=== PATIENT | female | born 1990 | race Caucasian/White ===

== ENCOUNTER 2016-07-10 04:59 | Inpatient (IN) | payer OTHER ==
[~2016-07-10] VITALS: Ht 162.6 cm; Wt 98.2 kg
[2016-07-10] VITALS (38 sets, daily range): BP systolic 123–214; BP diastolic 72–104
[~2016-07-10 04:59] MED LIST: EXPECTA PRENAT1 EACH PO; MACROBID100 MG PO
[2016-07-10 07:19] LABS: HEMATOCRIT 36.9 % (36.0-46.0); MCH 31.5 PG (29.0-34.0); MCHC 34.4 G/DL (30.0-36.0); MCV 91.6 FL (83-99); MEAN PLAT.VOLUME 10.2 uM^3 (9.5-12.4); PLATELET COUNT 282 K/uL (156-360); RBC DIS.WIDTH-CV 13.3 % (11.8-14.6); RBC DIS.WIDTH-SD 44.1 % (39-53); RED BLOOD COUNT 4.03 M/uL (3.80-5.20); WHITE BLOOD COUNT 13.4 K/uL (4.1-10.2)
[2016-07-10 07:43] LABS: ALKALINE PHOSPHATASE 83 IU/L (3-129); ANION GAP 12 MEQ/L (2-14); CHLORIDE 108 MEQ/L (99-109); GFR ESTIMATE (CALCULATED) > 59 mL/min/; GLUCOSE 75 mg/dL (70-99); POTASSIUM 3.9 MEQ/L (3.7-5.4); SAMPLE HEMOLYSIS CHECK 0; SAMPLE ICTERIC CHECK 0; SAMPLE LIPEMIA CHECK 0; SODIUM 139 MEQ/L (136-147); TOTAL BILIRUBIN 0.4 MG/DL (0.0-1.0); UREA NITROGEN (BUN) 18 mg/dL (9-23)
[2016-07-11] VITALS (13 sets, daily range): BP systolic 139–178; BP diastolic 78–110
[2016-07-11 07:03] LABS: HEMATOCRIT 36.1 % (36.0-46.0); MCH 31.1 PG (29.0-34.0); MCHC 34.1 G/DL (30.0-36.0); MCV 91.4 FL (83-99); MEAN PLAT.VOLUME 10.1 uM^3 (9.5-12.4); PLATELET COUNT 253 K/uL (156-360); RBC DIS.WIDTH-CV 13.5 % (11.8-14.6); RBC DIS.WIDTH-SD 44.8 % (39-53); RED BLOOD COUNT 3.95 M/uL (3.80-5.20); WHITE BLOOD COUNT 14.2 K/uL (4.1-10.2)
[2016-07-11 07:28] LABS: ALKALINE PHOSPHATASE 77 IU/L (3-129); ANION GAP 9 MEQ/L (2-14); CHLORIDE 108 MEQ/L (99-109); GFR ESTIMATE (CALCULATED) > 59 mL/min/; GLUCOSE 73 mg/dL (70-99); POTASSIUM 4.1 MEQ/L (3.7-5.4); SAMPLE HEMOLYSIS CHECK 0; SAMPLE ICTERIC CHECK 0; SAMPLE LIPEMIA CHECK 0; SODIUM 136 MEQ/L (136-147); TOTAL BILIRUBIN 0.4 MG/DL (0.0-1.0); UREA NITROGEN (BUN) 16 mg/dL (9-23)
[2016-07-12 03:10] VITALS: BP 153/91
[2016-07-12 07:18] VITALS: BP 152/100
[2016-07-12 11:00] VITALS: BP 165/94
[2016-07-12 15:28] VITALS: BP 148/86
[2016-07-12] MEDS ORDERED: VENTOLIN HFA18 GM IH ×2 (17:49→17:50)
[2016-07-12] MEDS ORDERED: PROVENTIL,2.5 MG/0.5 IH (17:51)
[2016-07-12 19:14] VITALS: BP 143/93
[2016-07-12 22:29] VITALS: BP 144/93
[2016-07-13] VITALS (14 sets, daily range): BP systolic 138–169; BP diastolic 86–105
[2016-07-13 09:19] LABS: HEMATOCRIT 38.8 % (36.0-46.0); MCH 30.4 PG (29.0-34.0); MCHC 33.5 G/DL (30.0-36.0); MCV 90.9 FL (83-99); RBC DIS.WIDTH-CV 13.5 % (11.8-14.6); RBC DIS.WIDTH-SD 44.5 % (39-53); RED BLOOD COUNT 4.27 M/uL (3.80-5.20); WHITE BLOOD COUNT 14.6 K/uL (4.1-10.2)
[2016-07-13 09:50] LABS: ALKALINE PHOSPHATASE 89 IU/L (3-129); ANION GAP 8 MEQ/L (2-14); CHLORIDE 108 MEQ/L (99-109); GFR ESTIMATE (CALCULATED) > 59 mL/min/; GLUCOSE 88 mg/dL (70-99); SAMPLE HEMOLYSIS CHECK 0; SAMPLE ICTERIC CHECK 0; SAMPLE LIPEMIA CHECK 0; SODIUM 136 MEQ/L (136-147); UREA NITROGEN (BUN) 24 mg/dL (9-23)
[2016-07-13 09:51] LABS: TOTAL BILIRUBIN 0.8 MG/DL (0.0-1.0)
[2016-07-13 10:48] LABS: MEAN PLAT.VOLUME 9.8 uM^3 (9.5-12.4)
[2016-07-13 11:00] LABS: PLATELET COUNT 167 K/uL (156-360)
[2016-07-13 12:24] LABS: DRSB INTERNAL CONTROL PASS; PROBE CHECK PASS
[2016-07-13 18:17] LABS: ALKALINE PHOSPHATASE 104 IU/L (3-129); ANION GAP 8 MEQ/L (2-14); CHLORIDE 107 MEQ/L (99-109); GFR ESTIMATE (CALCULATED) > 59 mL/min/; GLUCOSE 88 mg/dL (70-99); POTASSIUM 4.7 MEQ/L (3.7-5.4); SAMPLE HEMOLYSIS CHECK 0; SAMPLE ICTERIC CHECK 0; SAMPLE LIPEMIA CHECK 0; SODIUM 134 MEQ/L (136-147); TOTAL BILIRUBIN 0.7 MG/DL (0.0-1.0); UREA NITROGEN (BUN) 25 mg/dL (9-23)
[2016-07-13 18:22] LABS: HEMATOCRIT 41.1 % (36.0-46.0); MCH 31.3 PG (29.0-34.0); MCHC 34.3 G/DL (30.0-36.0); MCV 91.3 FL (83-99); MEAN PLAT.VOLUME 9.8 uM^3 (9.5-12.4); PLATELET COUNT 163 K/uL (156-360); RBC DIS.WIDTH-CV 13.6 % (11.8-14.6); RBC DIS.WIDTH-SD 44.5 % (39-53)
[2016-07-13] MEDS ORDERED: PERCOCET 5/31 TABLET PO (23:45)
[2016-07-13] MEDS ORDERED: MOTRIN800 MG PO (23:45)
[2016-07-14] VITALS (16 sets, daily range): BP systolic 127–196; BP diastolic 77–110
[2016-07-14 00:44] LABS: BASE EXCESS -3.5 mEq/L (-3 to +3); BICARBONATE 23.6 mEq/L (22-26); CARBOXY HGB 0.4 % (0-5); COMMENTS - BLOOD GASES C+; PCO2 49 mm Hg (35-45); PO2 < 28 mm Hg (80-100); SITE CORD VENOUS; pH 7.29 (7.35-7.45)
[2016-07-14 00:46] LABS: BICARBONATE 24.8 mEq/L (22-26); CARBOXY HGB 0.3 % (0-5); PCO2 54 mm Hg (35-45); PO2 < 28 mm Hg (80-100); pH 7.27 (7.35-7.45)
[2016-07-14 00:47] LABS: COMMENTS - BLOOD GASES C+; SITE CORD BLOOD
[2016-07-14 06:44] LABS: EOSINOPHIL (%) 0.9 % (0-5); EOSINOPHIL COUNT 0.2 K/uL (0-0.3); IMMATURE GRANULOCYTE (%) 0.4 % (0.0-0.7); IMMATURE GRANULOCYTE COUNT 0.1 K/uL; LYMPHOCYTE COUNT 3.2 K/uL (1.0-2.8); MCHC 33.9 G/DL (30.0-36.0); MCV 91.4 FL (83-99); MEAN PLAT.VOLUME 10.1 uM^3 (9.5-12.4); MONOCYTE (%) 8.9 % (3-12); MONOCYTE COUNT 1.6 K/uL (0-0.8); NEUTROPHIL COUNT 13.1 K/uL (1.8-6.4); PLATELET COUNT 143 K/uL (156-360); RBC DIS.WIDTH-CV 13.6 % (11.8-14.6); RBC DIS.WIDTH-SD 44.9 % (39-53); RED BLOOD COUNT 3.61 M/uL (3.80-5.20); WHITE BLOOD COUNT 18.2 K/uL (4.1-10.2)
[2016-07-15] VITALS (8 sets, daily range): BP systolic 136–170; BP diastolic 68–93
[2016-07-15 07:21] LABS: HEMATOCRIT 33.6 % (36.0-46.0); MCH 31.1 PG (29.0-34.0); MCHC 33.9 G/DL (30.0-36.0); MCV 91.8 FL (83-99); MEAN PLAT.VOLUME 10.1 uM^3 (9.5-12.4); PLATELET COUNT 149 K/uL (156-360); RBC DIS.WIDTH-CV 13.7 % (11.8-14.6); RBC DIS.WIDTH-SD 45.1 % (39-53); RED BLOOD COUNT 3.66 M/uL (3.80-5.20); WHITE BLOOD COUNT 16.6 K/uL (4.1-10.2)
[2016-07-15 07:48] LABS: ALKALINE PHOSPHATASE 87 IU/L (3-129); ANION GAP 7 MEQ/L (2-14); CHLORIDE 108 MEQ/L (99-109); GFR ESTIMATE (CALCULATED) > 59 mL/min/; GLUCOSE 81 mg/dL (70-99); POTASSIUM 4.2 MEQ/L (3.7-5.4); SAMPLE HEMOLYSIS CHECK 0; SAMPLE ICTERIC CHECK 0; SAMPLE LIPEMIA CHECK 0; SODIUM 139 MEQ/L (136-147); UREA NITROGEN (BUN) 13 mg/dL (9-23)
[2016-07-15 07:49] LABS: TOTAL BILIRUBIN 0.4 MG/DL (0.0-1.0)
[2016-07-16 03:01] VITALS: BP 140/76
[2016-07-16 08:10] VITALS: BP 138/89
[2016-07-16 12:00] VITALS: BP 144/79
[2016-07-16 16:33] VITALS: BP 137/83
[2016-07-17 04:04] VITALS: BP 127/81
[2016-07-17 07:38] VITALS: BP 143/91
[2016-07-17 08:58] LABS: HEMATOCRIT 32.7 % (36.0-46.0); MCH 31.6 PG (29.0-34.0); MCHC 33.6 G/DL (30.0-36.0); RBC DIS.WIDTH-SD 47.5 % (39-53); RED BLOOD COUNT 3.48 M/uL (3.80-5.20); WHITE BLOOD COUNT 12.1 K/uL (4.1-10.2)
[2016-07-17 09:04] LABS: MEAN PLAT.VOLUME 9.8 uM^3 (9.5-12.4); PLATELET COUNT 244 K/uL (156-360)
[2016-07-17] MEDS ORDERED: Procardia XL,Adalat PO (09:30)
[2016-07-17 09:31] LABS: ALKALINE PHOSPHATASE 83 IU/L (3-129); ANION GAP 8 MEQ/L (2-14); CHLORIDE 109 MEQ/L (99-109); GFR ESTIMATE (CALCULATED) > 59 mL/min/; GLUCOSE 85 mg/dL (70-99); POTASSIUM 3.9 MEQ/L (3.7-5.4); SAMPLE HEMOLYSIS CHECK 0; SAMPLE ICTERIC CHECK 0; SAMPLE LIPEMIA CHECK 0; SODIUM 140 MEQ/L (136-147); TOTAL BILIRUBIN 0.4 MG/DL (0.0-1.0); UREA NITROGEN (BUN) 11 mg/dL (9-23)
[2016-07-17 11:20] VITALS: BP 146/81
== END 2016-07-17 13:45 | disposition home or self-care (01) | DRG 766 ==
LOC: LDRP-OP 04:59 → 2WEST 05:00 → LDRP-OP 09-30 10:05
PROVIDERS: Obstetrics & Gynecology
PROC: 3E0K7GC Introduction of Other Therapeutic Substance into Genitourinary Tract, Via Natural or Artificial Opening (ICD-10-PCS; principal; 2016-07-13)
PROC: 10D00Z1 Extraction of Products of Conception, Low, Open Approach (ICD-10-PCS; 2016-07-14)
DX: O14.14 Severe pre-eclampsia complicating childbirth (principal); O76 Abnormality in fetal heart rate and rhythm complicating labor and delivery; O60.14X0 Preterm labor third trimester with preterm delivery third trimester, not applicable or unspecified; Z3A.32 32 weeks gestation of pregnancy; Z37.0 Single live birth; O9A.22 Injury, poisoning and certain other consequences of external causes complicating childbirth; R34 Anuria and oliguria; T47.4X5A Adverse effect of other laxatives, initial encounter; O99.214 Obesity complicating childbirth; E66.9 Obesity, unspecified; Z68.31 Body mass index [BMI] 31.0-31.9, adult
CPT/HCPCS: 36600; 59025; 76805; 76818; 80053; 82803; 83735; 85025; 85027; 86850; 86900; 86901; 87077; 87081; 87186; 87653; 88307; G0378; J0360; J1885; J2175; J2274; J3010; J3475; J7120